=== PATIENT | male | born 2000 | race Caucasian/White ===

== ENCOUNTER 2020-01-04 10:32 | Emergency (ER) | payer OTHER, SELFPAY ==
--- NOTE | 2020-01-04 11:26 | ED.GENADULT ---
HPI - General Adult General Chief complaint: Upper Respiratory Infection Stated complaint: sore throat Time Seen by Provider: 01/04/20 11:23 Source: patient Mode of arrival: ambulatory Limitations: no limitations History of Present Illness HPI narrative: A 19 y/o male, who is a nonsmoker/nondrinker, presents to with c/o a sore throat for 3 days. Pt took NyQuil last night. He reports a subjective fever and difficulty swallowing. No significant cough, congestion, wheeze, vomiting/diarrhea, rash Onset (ago): day(s) (3) Associated symptoms: other (subjective fever, difficulty swallowing) Related Data Allergies Allergy/AdvReac Type Severity Reaction Status Date / Time No Known Allergies Allergy Verified 01/04/20 11:28 Review of Systems Review of Systems: Narrative: General/Constitutional: Reports: subjective fever; Denies: weight loss Eyes: Denies: Redness,discharge Ears/Nose/Throat: Reports: sore throat, difficulty swallowing; Denies: Epistaxis,ear discharge Respiratory: Denies: Hemoptysis Gastrointestinal: Denies: Vomiting, Bleeding-rectal Skin: Denies: Lumps, eruption Neurologic: Denies: Focal Weakness,Sz Hematologic: Denies: Petechiae/Purpura Psychiatric: Denies: Suicidal ideation All systems reviewed & are unremarkable except as noted in HPI and below PMFSH Social History Social History (Updated 01/04/20 @ 11:40 by Earline Stokes) Smoking status: Never smoker Alcohol intake: never Comments No significant PMHx. No PCP on file. At time of signature, agree with nursing past medical, surgical, social and family history. There is no relevant family history pertinent to the presenting complaint Exam Narrative: Exam Narrative: General Appearance: Well appearing, Well nourished EYE: PERRLA, Conjunctiva clear Ears: Auditory canal normal, TM normal Nose: Rhinorrhea, Mucousal erythema Mouth/Throat: MM moist, Uvula midline, Pharyngeal erythema Neck: Supple, No adenopathy Respiratory: No respiratory distress, Breath sounds equal, Clear to auscultation Cardiovascular: RRR, No JVD Musculoskeletal: Non tender, Normal strength Skin: Warm, Dry Neurological: A&O x3, CN II-XII intact Psychiatric: Normal mood, Normal affect Course Vital Signs Vital signs: Vital Signs Temperature 98.2 F 01/04/20 11:28 Pulse Rate 89 01/04/20 11:28 Respiratory Rate 20 01/04/20 11:28 Blood Pressure 108/67 01/04/20 11:28 Pulse Oximetry 100 01/04/20 11:28 Temperature 98.2 F 01/04/20 11:28 Pulse Rate 89 01/04/20 11:28 Respiratory Rate 20 01/04/20 11:28 Blood Pressure 108/67 01/04/20 11:28 Pulse Oximetry 100 01/04/20 11:28 Medical Decision Making Vital Signs Vital Signs: Vital Signs Temperature 98.2 F 01/04/20 11:28 Pulse Rate 89 01/04/20 11:28 Respiratory Rate 20 01/04/20 11:28 Blood Pressure 108/67 01/04/20 11:28 Pulse Oximetry 100 01/04/20 11:28 Temperature 98.2 F 01/04/20 11:28 Pulse Rate 89 01/04/20 11:28 Respiratory Rate 01/04/20 11:28 Blood Pressure 108/67 01/04/20 11:28 Pulse Oximetry 100 01/04/20 11:28 Discharge Plan Discharge Clinical Impression: Pharyngitis Patient Disposition: Home, Self-Care Condition: Stable Instructions: Antibiotic Form, Pharyngitis (ED) Prescriptions: New azithromycin 250 mg tablet See Rx Instructions .ROUTE .COMPLEX Qty: 6 RF: 0 Lidocaine Viscous 2 % solution 5 ml MUCOUS MEM QID PRN (Reason: pain) Qty: 100 RF: 0 codeine-guaifenesin 10-100 mg/5 mL liquid 7.5 ml PO Q6H PRN (Reason: cough) Qty: 118 RF: 0 Interventions: Discharge Disposition Last Done: 01/04/20 12:01 Follow-up/Referrals: UNKNOWN,DOCTOR [Primary Care Provider] - Stand Alone Forms: Work/School Release IP Discharge Date/Time: 01/04/20 12:01
[2020-01-04 11:28] VITALS: BP 108/67; PULSE 89; RESP 20; TEMP 36.8; O2SAT 100
== END 2020-01-04 12:01 | disposition home or self-care (01) ==
PROVIDERS: Emergency Provider Emergency Medicine
DX: J02.9 Acute pharyngitis, unspecified (principal)
CPT/HCPCS: 99203; G0463